=== PATIENT | male | born 2000 | race African-American/Black ===

== ENCOUNTER 2024-06-01 08:17 | Emergency (ER) | payer OTHER ==
[2024-06-01 08:26] VITALS: BP 120/66; PULSE 86; RESP 20; TEMP 97.9; BMI 19.0
[2024-06-01] MEDS ORDERED: KETOROLAC TROMETHAMINE 15 MG/ML VIAL ONE (09:02)
[2024-06-01 09:41] LABS: HEMOGLOBIN 12.7 g/dL (13.7-17.5)
[2024-06-01] MEDS: KETOROLAC TROMETHAMINE 15 MG/ML VIAL IVPUSH ONE (09:41)
[2024-06-01 09:46] LABS: HEMATOCRIT 35.5 % (40.1-51.0); INR 1.27 (0.83-1.09); MCHC 35.8 g/dl (32.3-36.5); MEAN CELL VOLUME 81.1 fl (79.0-92.2); PROTHROMBIN TIME (PATIENT) 13.8 SEC (9.7-13.0); RDW 15.3 % (11.9-15.3); Reticulocyte % 2.89 % (0.51-1.81)
[2024-06-01 10:08] LABS: ALBUMIN 4.4 g/dl (3.4-5.0); BLOOD UREA NITROGEN 18.3 mg/dL (7-18); CALCIUM 9.6 mg/dL (8.5-10.1)
[2024-06-01 10:11] LABS: CREATININE 1.4 mg/dL (0.55-1.3)
[2024-06-01 10:13] LABS: BILIRUBIN,TOTAL 2.2 mg/dL (0.2-1)
[2024-06-01] MEDS ORDERED: ACETAMINOPHEN INJECTION 100 ML ONE (10:57)
[2024-06-01] MEDS: SODIUM CHLORIDE 1,000 ML IV STA (11:16)
[2024-06-01] MEDS: ACETAMINOPHEN 1000 MG/100 ML BAG IVPB ONE (11:17)
== END 2024-06-01 13:25 | disposition home or self-care (01) ==
LOC: JER 08:17
PROC: 3E033NZ Introduction of Analgesics, Hypnotics, Sedatives into Peripheral Vein, Percutaneous Approach (ICD-10-PCS; principal; 2024-06-01)
PROC: 3E0333Z Introduction of Anti-inflammatory into Peripheral Vein, Percutaneous Approach (ICD-10-PCS; 2024-06-01)
PROC: 3E0234Z Introduction of Serum, Toxoid and Vaccine into Muscle, Percutaneous Approach (ICD-10-PCS; 2024-06-01)
DX: R07.89 Other chest pain (principal); M53.3 Sacrococcygeal disorders, not elsewhere classified
CPT/HCPCS: 36415; 71046-TC-FY; 72100-TC-FY; 72170-TC-FY; 80053; 85025; 85610; 86850; 86900; 86901; 93005; 93010; 99285-25; J0131